=== PATIENT | female | born 1955 | race Caucasian/White ===

== ENCOUNTER → 2017-03-29 | Outpatient (CLI) | payer BC ==
[~2017-03-29] MED LIST: ALLERGY ME12.5 MG/5 PO; ALPHA LIPOIC A200 M2 PO; AMARYL 2MG T2 MG/TAB PO; AMARYL4 MG PO; ASPIRIN 32325 MG/TAB PO; ATARAX 25MG25 MG/TAB PO; ATARAX25 MG PO; B COMPLEX #11 TAB PO; BIOFLAX1000 MG PO; CALCIUM1 CAP PO; CHROMIUM PICOLI1 TA8 PO; DIOVAN/HCT 12.51 TAB PO; ELITE MAGNESIUM1 TAB PO; FIBER0.52 GM PO; FISH OIL500 MG; GLIMEPIRIDE2 MG PO; GLUCOPHAGE1000 MG PO; GLUMETZA500 MG PO; LISINOPRIL10 MG PO; MASON NATURAL500 MG PO; METFORMIN500 MG PO; MEVACOR40 MG PO; NATURAL FLAX1000 MG PO; NEURONTIN300 MG/CAP PO; NEURONTIN600 MG/TAB PO; NORCO 325 MG-7.1 TAB PO; NORFLEX100 MG PO; PREMARIN 0.60.625 M1 PO; PRILOSEC 20MG20 MG PO; PRINZIDE 12.5 M1 TA1 PO; TEGRETOL 2200 MG/TA1 PO; TEGRETOL200 MG PO; VITAMIN B COMPL1 T16 PO; VITAMIN D1000 IU PO
== END ==
LOC: COL.VAS 03-28 11:00
DX: I08.1 Rheumatic disorders of both mitral and tricuspid valves (principal); R05 Cough

== ENCOUNTER → 2017-04-06 | Outpatient (CLI) | payer BC | LOC: MC.RAD 13:27 | DX: Z12.31 Encounter for screening mammogram for malignant neoplasm of breast (principal); N64.89 Other specified disorders of breast ==

== ENCOUNTER → 2017-04-10 | Outpatient (CLI) | payer BC | LOC: MC.RAD 13:30 | DX: N63 Unspecified lump in breast (principal) ==

== ENCOUNTER → 2017-04-12 | Outpatient (CLI) | payer BC | LOC: MC.RAD 13:00 | DX: N63 Unspecified lump in breast (principal); N64.89 Other specified disorders of breast | CPT/HCPCS: 30634 ==

== ENCOUNTER → 2017-04-26 | Outpatient (CLI) | payer BC | LOC: COL.RAD 13:06 | DX: C50.911 Malignant neoplasm of unspecified site of right female breast (principal); M89.9 Disorder of bone, unspecified | CPT/HCPCS: A9541 ==

== ENCOUNTER 2017-04-27 06:57 | Day surgery (SDC) | payer BC ==
[2017-04-27] VITALS (8 sets, daily range): BP systolic 111–134; BP diastolic 51–73; PULSE 81–89; TEMP 97.5–97.7
[~2017-04-27] VITALS: Ht 175.3 cm; Wt 115.3 kg
[~2017-04-27 06:57] MED LIST changes: -ALPHA LIPOIC A200 M2 PO; -AMARYL4 MG PO; -B COMPLEX #11 TAB PO; -CHROMIUM PICOLI1 TA8 PO; -DIOVAN/HCT 12.51 TAB PO; -FIBER0.52 GM PO; -GLUMETZA500 MG PO; -MASON NATURAL500 MG PO; -NATURAL FLAX1000 MG PO; -NEURONTIN600 MG/TAB PO
[2017-04-27] MEDS ORDERED: ASPIRIN 32325 MG/TAB PO (09:55)
[2017-04-27] MEDS ORDERED: NEURONTIN600 MG/TAB PO (09:56)
[2017-04-27] MEDS ORDERED: GLUMETZA500 MG PO (09:57)
[2017-04-27] MEDS ORDERED: PRILOSEC 20MG20 MG PO (09:58)
[2017-04-27] MEDS ORDERED: AMARYL4 MG PO (09:58)
[2017-04-27] MEDS ORDERED: ATARAX 25MG25 MG/TAB PO (09:59)
[2017-04-27] MEDS ORDERED: B COMPLEX #11 TAB PO (10:00)
[2017-04-27] MEDS ORDERED: ALPHA LIPOIC A200 M2 PO (10:01)
[2017-04-27] MEDS ORDERED: MASON NATURAL500 MG PO (10:02)
[2017-04-27] MEDS ORDERED: CHROMIUM PICOLI1 TA8 PO (10:06)
[2017-04-27] MEDS ORDERED: NATURAL FLAX1000 MG PO (10:06)
[2017-04-27] MEDS ORDERED: FIBER0.52 GM PO (10:07)
[2017-04-27] MEDS ORDERED: DIOVAN/HCT 12.51 TAB PO (10:08)
[2017-04-27] MEDS ORDERED: MEVACOR40 MG PO (10:09)
[2017-04-27] MEDS ORDERED: NORCO 325 MG-7.1 TAB PO (10:11)
== END 2017-04-27 14:45 | disposition home or self-care (01) ==
LOC: SDCO 06:57
DX: C50.411 Malignant neoplasm of upper-outer quadrant of right female breast (principal); I10 Essential (primary) hypertension; E11.42 Type 2 diabetes mellitus with diabetic polyneuropathy; E78.5 Hyperlipidemia, unspecified; K21.9 Gastro-esophageal reflux disease without esophagitis; G47.33 Obstructive sleep apnea (adult) (pediatric); G89.29 Other chronic pain; Z79.84 Long term (current) use of oral hypoglycemic drugs; Z90.710 Acquired absence of both cervix and uterus; Z80.0 Family history of malignant neoplasm of digestive organs; Z82.49 Family history of ischemic heart disease and other diseases of the circulatory system; Z83.3 Family history of diabetes mellitus
CPT/HCPCS: J2405; J2704; J3010; J7120

== ENCOUNTER → 2018-04-08 | Outpatient (CLI) | payer BC ==
[~2018-04-08] MED LIST changes: +ALPHA LIPOIC A200 M2 PO; +AMARYL4 MG PO; +B COMPLEX #11 TAB PO; +CHROMIUM PICOLI1 TA8 PO; +DIOVAN/HCT 12.51 TAB PO; +FIBER0.52 GM PO; +GLUMETZA500 MG PO; +MASON NATURAL500 MG PO; +NATURAL FLAX1000 MG PO; +NEURONTIN600 MG/TAB PO
== END ==
LOC: MC.RAD 13:00
DX: Z08 Encounter for follow-up examination after completed treatment for malignant neoplasm (principal); C50.411 Malignant neoplasm of upper-outer quadrant of right female breast; I10 Essential (primary) hypertension; Z98.890 Other specified postprocedural states

== ENCOUNTER → 2018-08-09 | Outpatient (CLI) | payer BC | LOC: MC.RAD 10:30 | DX: C50.411 Malignant neoplasm of upper-outer quadrant of right female breast (principal); Z98.890 Other specified postprocedural states | CPT/HCPCS: G0279 ==

== ENCOUNTER → 2019-04-21 | Outpatient (CLI) | payer BC | LOC: MC.RAD 08:56 | DX: C50.411 Malignant neoplasm of upper-outer quadrant of right female breast (principal); Z98.890 Other specified postprocedural states ==

== ENCOUNTER → 2020-04-08 | Outpatient (CLI) | payer MEDICARE | LOC: MC.RAD 15:42 | DX: Z12.31 Encounter for screening mammogram for malignant neoplasm of breast (principal) ==

== ENCOUNTER → 2021-04-27 | Outpatient (CLI) | payer MEDICARE | LOC: MC.RAD 13:23 | DX: Z12.31 Encounter for screening mammogram for malignant neoplasm of breast (principal) ==

== ENCOUNTER 2022-01-18 09:30 | Outpatient (RCR) | payer MEDICARE | END 2022-01-24 | disposition still patient (30) | LOC: PT.GENESIS | DX: M54.50 Low back pain, unspecified (principal) ==

== ENCOUNTER 2022-02-22 13:45 | Outpatient (RCR) | payer MEDICARE | END 2022-02-22 14:30 | disposition home or self-care (01) | LOC: PT.GENESIS 13:45 | DX: M54.50 Low back pain, unspecified (principal) ==

== ENCOUNTER 2022-04-17 13:00 | Outpatient (RCR) | payer MEDICARE | END 2022-04-26 | disposition still patient (30) | LOC: PT.GENESIS | DX: R42 Dizziness and giddiness (principal) ==

== ENCOUNTER → 2022-05-03 | Outpatient (CLI) | payer MEDICARE | LOC: MC.RAD 13:00 | DX: Z12.31 Encounter for screening mammogram for malignant neoplasm of breast (principal); R92.0 Mammographic microcalcification found on diagnostic imaging of breast ==

== ENCOUNTER → 2022-05-05 | Outpatient (CLI) | payer MEDICARE | LOC: MC.RAD 10:54 | DX: N64.59 Other signs and symptoms in breast (principal) ==

== ENCOUNTER → 2022-05-09 | Outpatient (CLI) | payer MEDICARE | LOC: MC.RAD 12:28 | DX: N63.10 Unspecified lump in the right breast, unspecified quadrant (principal) ==

== ENCOUNTER → 2022-10-30 | Outpatient (CLI) | payer MEDICARE | LOC: MC.RAD 09:00 | DX: C50.411 Malignant neoplasm of upper-outer quadrant of right female breast (principal) ==

== ENCOUNTER → 2023-12-18 | Outpatient (REF) | payer MEDICARE ==
[2023-12-18 17:36] LABS: BAND 2 % (0-10); BASOPHIL 1 % (0-2); EOSINOPHIL 4 % (0-4); LYMPHOCYTE 44 % (20.0-51.0); NEUTROPHILS 45 % (42.0-75.2); PLATELET ESTIMATE NORMAL (NORMAL)
== END ==
LOC: ZCOL.LAB 16:27
PROVIDERS: Family Medicine
DX: C50.411 Malignant neoplasm of upper-outer quadrant of right female breast (principal)

== ENCOUNTER 2024-03-24 13:15 | Outpatient (RCR) | payer MEDICARE | END 2024-03-26 | disposition home or self-care (01) | LOC: PT.GENESIS | DX: M54.50 Low back pain, unspecified (principal) ==

== ENCOUNTER → 2024-05-15 | Outpatient (CLI) | payer MEDICARE | LOC: MC.RAD 09:45 | DX: Z12.31 Encounter for screening mammogram for malignant neoplasm of breast (principal) ==